=== PATIENT | female | born 1955 | race Caucasian/White ===

== ENCOUNTER → 2017-05-06 | Outpatient (CLI) | payer OTHER | LOC: BMCIMAGING 14:30 | PROVIDERS: ATTEND Internal Medicine | DX: Z12.31 Encounter for screening mammogram for malignant neoplasm of breast (principal) | CPT/HCPCS: G0202 ==

== ENCOUNTER → 2018-02-01 | Outpatient (CLI) | payer OTHER | LOC: FIMAGING 10:00 | PROVIDERS: ATTEND Orthopaedic Surgery | DX: Z01.818 Encounter for other preprocedural examination (principal); M17.11 Unilateral primary osteoarthritis, right knee ==

== ENCOUNTER 2018-02-13 08:52 | Observation (INO) | payer OTHER ==
--- NOTE | 2018-02-13 06:30 | PDHPUP ---
History & Physical Update H&P update statement: This history and physical update is based on an assessment of the patient which was completed after admission or registration (within 24 hours), but prior to the surgery/procedure. H&P update: no change in patient's condition since H&P completed
--- NOTE | 2018-02-13 06:30 | PDIAF ---
- Diagnosis Diagnosis: right knee djd Code Status: Full Code - Medication Management Discharge Medications: Medications to Continue on Transfer Cholecalciferol Vit D3 [Vitamin D3 (*)] 1,000 units PO DAILY 01/27/18 [Last Taken Unknown] Gabapentin [Neurontin 100 MG (*)] 200 mg PO BID@09,14 01/27/18 [Last Taken Unknown] Gabapentin [Neurontin 300 MG (*)] 300 mg PO HS 01/27/18 [Last Taken Unknown] Lisinopril [Zestril 20 mg (*)] 20 mg PO DAILY 01/27/18 [Last Taken Unknown] Multivitamins [Multivitamin (*)] 1 each PO DAILY 01/27/18 [Last Taken Unknown] QUEtiapine FUMARATE [Seroquel 50 mg (*)] 75 mg PO HS 01/27/18 [Last Taken Unknown] Lamictal 01/31/18 [Last Taken Unknown] Discharge Medications: Refer to the Discharge Home Medication list for PRN reason. - Orders Services needed: Physical Therapy Diet Recommendation: no restrictions on diet Diet Texture: Regular Texture Diet Activity/Weight Bearing Restrictions: wbat. rom as fifi. keep dressing in place unless it becomes saturated. may shower with bandage. seek attn for increasing pain, chest pain, sob, leg pain, drainage or other focal complaint. f/u at two weeks Additional Instructions: TOTAL JOINT ARTHROPLASTY DISCHARGE INSTRUCTIONS 1. Your surgeon follows the [facility] protocol for reducing your risk of DVT (blood clots) following surgery. Medication will be ordered to prevent blood clots. A sudden increase in calf pain and/or swelling could indicate a blood clot in your leg. If this occurs, please call your surgeon or his/her administration assistant. An ultrasound of the leg may be necessary to diagnose a blood clot. If you have conditions that make you a higher risk for blood clots, your surgeon may use more aggressive ways to prevent them. Notify your surgeon if you think you are a high risk for blood clots. 2. Wear your white surgical stockings (NILDA hose) for 2 weeks. This decreases your swelling and may help prevent blood clots. It is ok to remove NILDA hose at night time to give your legs a break. 3. Swelling and bruising in the surgical leg is common. If you feel that it is excessive, please notify your surgeon. 4. Elevate your surgical leg with the ankle above the hip several times every day. Please keep the leg straight when you elevate by putting pillows under your foot. Do not put pillows under your knee. This will make being able to fully straighten more difficult. This is uncomfortable, but try to do it as much as possible. 5. For total knee replacements use compressive wrap on your knee for 3-5 days after surgery, then you can discontinue it. 6. Use a walker or crutches for 1-2 weeks. Progress your weight-bearing as tolerated. You may start to use a cane when you feel stable and safe. 7. You will receive physical therapy instructions in the hospital. Continue those exercises at home. There are additional exercises in the total joint booklet you were given before surgery. Outpatient physical therapy will begin 7- 10 days after surgery. Please schedule this in advance. 8. Use ice on your knee at least 3-5 times every day for 30 minutes. This helps reduce pain and swelling. Also use it at night before falling asleep. 9. Leave your surgical dressing in place for 2 weeks. Your dressing is water resistant, but not waterproof. Cover it with Saran Wrap or Eldhk-c-Hcuy before showering. You may shower as soon as you feel safe entering a shower. If you notice bleeding from your incision 2 or 3 days after surgery, please notify your surgeon. 10. Due to narcotics, decreased activity and altered diet, most patients experience constipation after surgery. Use gdwm-fht-[id number] stool softeners while you are on narcotics. 11. You may drive a car when you are comfortable bearing weight, have good muscular control of your leg and are off narcotics. This usually occurs 2-4 weeks after surgery, depending on which leg was operated on. 12. If there are questions not addressed here, please refer the [facility] book given for more information. If you still have questions, please contact your surgeon s office. 13. If you have a life-threatening emergency, please call 911 and go to the emergency room immediately. For non-life threatening emergencies, please call your physicians office for advice before going to the emergency room. - Follow Up Care Current Providers and Referrals: Laurel Simmons MD [Primary Care Provider] - Denilson Wise MD [Medical Doctor] -
[~2018-02-13 08:52] MED LIST: CALCIUM CHLORIDE 1 GM/10 ML INJ ONE; ROPIVACAINE 0.2% 80 MG, EPINEPHrine 0.2 MG, KETOROLAC TROMETHAMINE 30 MG in SYRINGE 0 ML IU ONE; THROMBIN (BOVINE) 5,000 UNIT VIAL TP ONE; TRANEXAMIC ACID 1,000 MG in NS 100 ML IV ONE; ceFAZolin 1 GM/5 ML SYR ONE
[2018-02-13] MEDS ORDERED: FAMOTIDINE 20 MG TAB PO ONE (09:08)
[2018-02-13] MEDS ORDERED: ACETAMINOPHEN 325 MG TAB PO ONE (09:08)
[2018-02-13] MEDS ORDERED: ceFAZolin 2 GM/DEXTROSE 100 ML IV ONE (09:08)
[2018-02-13] MEDS ORDERED: LIDOCAINE 1% 2 ML INJ ID PRN (09:09)
[2018-02-13] MEDS ORDERED: LR 1,000 ML IV ONE (09:09)
[2018-02-13] MEDS ORDERED: DIAZEPAM 5 MG/ML 1 ML SYR IVP ONE (10:46)
--- NOTE | 2018-02-13 10:48 | PDANEPAE ---
ANE Past Medical History - Cardiovascular History Hx Hypertension: Yes Hx Arrhythmias: No Hx Chest Pain: No Hx Coronary Artery / Peripheral Vascular Disease: No Hx CHF / Valvular Disease: No Hx Palpitations: No - Pulmonary History Hx COPD: No Hx Asthma/Reactive Airway Disease: No Hx Recent Upper Respiratory Infection: No Hx Oxygen in Use at Home: No Hx Sleep Apnea: No Sleep Apnea Screening Result - Last Documented: Negative - Neurologic History Hx Cerebrovascular Accident: No Hx Seizures: No Hx Dementia: No - Endocrine History Hx Diabetes: No Obesity: no - Renal History Hx Renal Disorders: No - Liver History Hx Hepatic Disorders: No - Neurological & Psychiatric Hx Hx Neurological and Psychiatric Disorders: Yes Neurological / Psychiatric History Comment: situational anxiety - Cancer History Hx Cancer: No - Congenital Disorder History Hx Congenital Disorders: No - GI History GERD: no Hx Gastrointestinal Disorders: No - Other Health History Other Health History: none - Chronic Pain History Chronic Pain: Yes (bilat knee pain) - Surgical History Prior Surgeries: none ANE Review of Systems Review of Systems: - Exercise capacity METS (RN): 4 METS ANE Patient History - Allergies Allergies/Adverse Reactions: bacitracin Allergy (Verified 01/27/18 09:58) Rash Latex, Natural Rubber Allergy (Verified 02/13/18 09:31) midazolam [From Versed] Allergy (Verified 01/31/18 16:25) Other-Enter Comments morphine Allergy (Verified 01/27/18 09:58) HEADACHE - Home Medications Home Medications: Cholecalciferol Vit D3 [Vitamin D3 (*)] 1,000 units PO DAILY 01/27/18 [Last Taken 02/06/18] Gabapentin [Neurontin 100 MG (*)] 200 mg PO BID@09,14 01/27/18 [Last Taken 02/12] Gabapentin [Neurontin 300 MG (*)] 300 mg PO HS 01/27/18 [Last Taken 02/12/18] Lisinopril [Zestril 20 mg (*)] 20 mg PO DAILY 01/27/18 [Last Taken 02/12/18] Multivitamins [Multivitamin (*)] 1 each PO DAILY 01/27/18 [Last Taken 02/06/18] QUEtiapine FUMARATE [Seroquel 50 mg (*)] 75 mg PO HS 01/27/18 [Last Taken ] lamoTRIgine [LamICTAL 100 MG (*)] 200 mg PO BID 01/31/18 [Last Taken 02/12/18] clonazePAM [Klonopin (*)] 0.5 mg PO DAILY PRN 02/13/18 [Last Taken Unknown] - NPO status NPO Status: no food or drink >8 hours NPO Since - Liquids (Date): 02/13/18 NPO Since - Liquids (Time): 00:00 NPO Since - Solids (Date): 02/12/18 NPO Since - Solids (Time): 18:00 - Anes Hx Anes Hx: no prior problems - Smoking Hx Smoking Status: Never smoked - Family Anes Hx Family Hx Anesthesia Complications: none ANE Labs/Vital Signs - Vital Signs Blood Pressure: 130/77 Heart Rate: 80 Respiratory Rate: 14 O2 Sat (%): 99 Height: 157.48 cm Weight: 46.266 kg ANE Physical Exam - Airway Neck exam: FROM Mallampati Score: Class 2 Mouth exam: normal dental/mouth exam - Pulmonary Pulmonary: no respiratory distress, no rales or rhonchi, clear to auscultation - Cardiovascular Cardiovascular: regular rate and rhythym, no murmur, rub, or gallop - ASA Status ASA Status: II ANE Anesthesia Plan Anesthesia Plan: spinal Regional Anesthesia: adductor canal FNB
[2018-02-13] MEDS ORDERED: DEXAMETHASONE 4 MG/ML VIAL ONE ×2 (11:07)
[2018-02-13] MEDS ORDERED: PROPOFOL 200 MG/20 ML VIAL ONE ×2 (11:07→11:42)
[2018-02-13] MEDS ORDERED: LIDOCAINE 2% 5 ML SDV ONE (11:08)
[2018-02-13] MEDS ORDERED: DIAZEPAM 5 MG/ML 1 ML SYR ONE (11:09)
[2018-02-13] MEDS ORDERED: NALOXONE HCL 0.4 MG/ML INJ IVP PRN (12:26)
[2018-02-13] MEDS ORDERED: ACETAMINOPHEN 500 MG TAB PO PRN (12:26)
[2018-02-13] MEDS ORDERED: LR 500 ML IV PRN (12:26)
[2018-02-13] MEDS ORDERED: ONDANSETRON 4 MG/2 ML VIAL IVP PRN ×2 (12:26→12:35)
[2018-02-13] MEDS ORDERED: fentaNYL 100 MCG/2 ML INJ IVP PRN (12:26)
[2018-02-13] MEDS ORDERED: oxyCODONE IR 5 MG TAB PO PRN (12:26)
[2018-02-13] MEDS ORDERED: PROMETHAZINE HCL 25 MG/ML INJ IVP PRN ×2 (12:26→12:35)
[2018-02-13] MEDS ORDERED: DIPHENOXYLATE/ATROPINE LOMOTIL 1 TAB PO PRN (12:35)
[2018-02-13] MEDS ORDERED: BISACODYL 10 MG SUPP PR PRN (12:35)
[2018-02-13] MEDS ORDERED: METOCLOPRAMIDE 10 MG/2 ML VIAL IVP PRN (12:35)
[2018-02-13] MEDS ORDERED: traMADol 50 MG TAB PO PRN (12:35)
[2018-02-13] MEDS ORDERED: MAGNESIUM HYDROXIDE 30 ML UDCUP PO PRN (12:35)
[2018-02-13] MEDS ORDERED: PROMETHAZINE HCL 25 MG SUPPR PR PRN (12:35)
[2018-02-13] MEDS ORDERED: POLYETHYLENE GLYCOL 3350 17 GM PKT PO PRN (12:35)
[2018-02-13] MEDS ORDERED: ONDANSETRON DISINTEGRATING 4 MG TAB PO PRN (12:35)
[2018-02-13] MEDS ORDERED: diphenhydrAMINE 25 MG CAP PO PRN (12:35)
[2018-02-13] MEDS ORDERED: TEMAZEPAM 15 MG CAP PO PRN (12:35)
[2018-02-13] MEDS ORDERED: CYCLOBENZAPRINE 10 MG TAB PO PRN (12:35)
[2018-02-13] MEDS ORDERED: LACTULOSE 20 GM/30 ML UDCUP PO PRN (12:35)
--- NOTE | 2018-02-13 12:35 | POSTOPPROG ---
Post Op Note Date of Operation: 02/13/18 Surgeon: Denilson Wise Mushroom Picker: [email or web address] Anesthesiologist: jayy Anesthesia: IV Sedation, Spinal Pre-op Diagnosis: right knee djd Post-op Diagnosis: same Indication: same Procedure: right tka Inf/Abcess present in the surg proc area at time of surgery?: No Depth: Deep Incisional (Fascial) EBL: 100-500
[2018-02-13] MEDS ORDERED: clonazePAM 0.5 MG TAB PO PRN (12:38)
[2018-02-13] MEDS ORDERED: TRANEXAMIC ACID 650 MG TAB PO SCH (12:45)
--- NOTE | 2018-02-13 12:50 | POSTANESTH ---
Post Anesthetic Evaluation Cardiovascular Status: Normal, Stable, Similar to Pre-Op Cond Respiratory Status: Normal, Stable, Similar to Pre-op Cond. Level of Consciousness/Mental Status: Can Participate in Eval, Alert and Oriented Pain Control: Adequate, Prn Tx Ordered Nausea/Vomiting Control: Adequate, Prn Tx Ordered Complications Possibly Related to Anesthesia: None Noted (Rt adductor canal nerve block performed in PACU.)
[2018-02-13] MEDS ORDERED: LR 1,000 ML IV SCH (13:00)
[2018-02-13] MEDS ORDERED: GABAPENTIN 100 MG CAP PO SCH (14:00)
[2018-02-13] MEDS: TRANEXAMIC ACID 650 MG TAB PO SCH ×2 (16:09→23:34)
[2018-02-13] MEDS: GABAPENTIN 300 MG CAP PO SCH ×2 (16:27→20:40)
[2018-02-13] MEDS: ACETAMINOPHEN 325 MG TAB PO SCH ×2 (17:38→23:35)
[2018-02-13] MEDS: oxyCODONE IR 5 MG TAB PO PRN ×2 (17:39→19:08)
[2018-02-13] MEDS: ceFAZolin 2 GM/DEXTROSE 100 ML IV SCH (20:39)
[2018-02-13] MEDS: SENNOSIDES/DOCUSATE SODIUM TAB PO SCH (20:39)
[2018-02-13] MEDS: ASPIRIN 325 MG TAB PO SCH (20:39)
[2018-02-13] MEDS: lamoTRIgine 100 MG TAB PO SCH (20:40)
[2018-02-13] MEDS: FAMOTIDINE 20 MG TAB PO SCH (20:40)
[2018-02-13] MEDS ORDERED: QUEtiapine FUMARATE 50 MG TAB PO SCH (21:00)
[2018-02-14] MEDS: ceFAZolin 2 GM/DEXTROSE 100 ML IV SCH (04:18)
[2018-02-14] MEDS: ACETAMINOPHEN 325 MG TAB PO SCH ×2 (05:14→11:10)
--- NOTE | 2018-02-14 07:09 | PDIAF ---
- Diagnosis Diagnosis: right knee djd Code Status: Full Code - Medication Management Discharge Medications: Medications to Continue on Transfer Cholecalciferol Vit D3 [Vitamin D3 (*)] 1,000 units PO DAILY 01/27/18 [Last Taken 02/06/18] Gabapentin [Neurontin 300 MG (*)] 300 mg PO TID 01/27/18 [Last Taken 02/12/18] Lisinopril [Zestril 20 mg (*)] 20 mg PO DAILY 01/27/18 [Last Taken 02/12/18] Multivitamins [Multivitamin (*)] 1 each PO DAILY 01/27/18 [Last Taken 02/06/18] QUEtiapine FUMARATE [Seroquel 50 mg (*)] 75 mg PO HS 01/27/18 [Last Taken ] lamoTRIgine [LamICTAL 100 MG (*)] 200 mg PO BID 01/31/18 [Last Taken 02/12/18] clonazePAM [Klonopin (*)] 0.5 mg PO DAILY PRN 02/13/18 [Last Taken Unknown] Aspirin [Aspirin 325 mg (*)] 325 mg PO DAILY tab 02/14/18 [Last Taken Unknown] oxyCODONE IR [Oxycodone Ir (*)] 5 - 10 mg PO Q3HRS PRN #60 tab 02/14/18 [Last Taken Unknown] Discharge Medications: Refer to the Discharge Home Medication list for PRN reason. - Orders Services needed: Physical Therapy Diet Recommendation: no restrictions on diet Diet Texture: Regular Texture Diet Activity/Weight Bearing Restrictions: wbat. rom as fifi. keep dressing in place unless it becomes saturated. may shower with bandage. seek attn for increasing pain, chest pain, sob, leg pain, drainage or other focal complaint. f/u at two weeks Additional Instructions: TOTAL JOINT ARTHROPLASTY DISCHARGE INSTRUCTIONS 1. Your surgeon follows the [facility] protocol for reducing your risk of DVT (blood clots) following surgery. Medication will be ordered to prevent blood clots. A sudden increase in calf pain and/or swelling could indicate a blood clot in your leg. If this occurs, please call your surgeon or his/her optical assistant. An ultrasound of the leg may be necessary to diagnose a blood clot. If you have conditions that make you a higher risk for blood clots, your surgeon may use more aggressive ways to prevent them. Notify your surgeon if you think you are a high risk for blood clots. 2. Wear your white surgical stockings (NILDA hose) for 2 weeks. This decreases your swelling and may help prevent blood clots. It is ok to remove NILDA hose at night time to give your legs a break. 3. Swelling and bruising in the surgical leg is common. If you feel that it is excessive, please notify your surgeon. 4. Elevate your surgical leg with the ankle above the hip several times every day. Please keep the leg straight when you elevate by putting pillows under your foot. Do not put pillows under your knee. This will make being able to fully straighten more difficult. This is uncomfortable, but try to do it as much as possible. 5. For total knee replacements use compressive wrap on your knee for 3-5 days after surgery, then you can discontinue it. 6. Use a walker or crutches for 1-2 weeks. Progress your weight-bearing as tolerated. You may start to use a cane when you feel stable and safe. 7. You will receive physical therapy instructions in the hospital. Continue those exercises at home. There are additional exercises in the total joint booklet you were given before surgery. Outpatient physical therapy will begin 7- 10 days after surgery. Please schedule this in advance. 8. Use ice on your knee at least 3-5 times every day for 30 minutes. This helps reduce pain and swelling. Also use it at night before falling asleep. 9. Leave your surgical dressing in place for 2 weeks. Your dressing is water resistant, but not waterproof. Cover it with Saran Wrap or Fkucn-u-Dprc before showering. You may shower as soon as you feel safe entering a shower. If you notice bleeding from your incision 2 or 3 days after surgery, please notify your surgeon. 10. Due to narcotics, decreased activity and altered diet, most patients experience constipation after surgery. Use vupq-qga-dlhcpyj stool softeners while you are on narcotics. 11. You may drive a car when you are comfortable bearing weight, have good muscular control of your leg and are off narcotics. This usually occurs 2-4 weeks after surgery, depending on which leg was operated on. 12. If there are questions not addressed here, please refer the [facility] book given for more information. If you still have questions, please contact your surgeon s office. 13. If you have a life-threatening emergency, please call 911 and go to the emergency room immediately. For non-life threatening emergencies, please call your physicians office for advice before going to the emergency room. - Follow Up Care Current Providers and Referrals: Laurel Simmons MD [Primary Care Provider] - Denilson Wise MD [Medical Doctor] -
--- NOTE | 2018-02-14 07:11 | SOAPPROG ---
SOAP Progress Note Assessment/Plan: Assessment: s/p tka Plan: d/c home pain control dvt precautions reviewed f/u at two weeks 02/14/18 07:09 Subjective: mild pain no cp or sob fifi po Objective: Vital Signs Temp Pulse Resp BP Pulse Ox 36.4 C 59 L 16 137/73 H 100 02/14/18 04:00 02/14/18 04:00 02/14/18 04:00 02/14/18 04:00 02/14/18 04:00 Laboratory Results 02/14/18 04:17 02/13/18 02/14/18 02/15/18 05:59 05:59 05:59 Intake Total 3050 Output Total 650 Balance 2400 dressing intact intact pf,df,ehl toes warm and pink hira neg homans hira xrays stable alignment, no fx or lucency ICD10 Worksheet Patient Problems: Problems Problem Status Onset Arthritis of knee Acute - ICD10 Problem Qualifiers (1) Arthritis of knee
[2018-02-14] MEDS: ASPIRIN 325 MG TAB PO SCH (08:10)
[2018-02-14] MEDS: lamoTRIgine 100 MG TAB PO SCH (08:10)
[2018-02-14] MEDS: GABAPENTIN 300 MG CAP PO SCH (08:11)
[2018-02-14] MEDS: oxyCODONE IR 5 MG TAB PO PRN ×2 (08:13→11:13)
[2018-02-14] MEDS: FAMOTIDINE 20 MG TAB PO SCH (08:15)
[2018-02-14] MEDS: TRANEXAMIC ACID 650 MG TAB PO SCH (08:16)
[2018-02-14] MEDS: SENNOSIDES/DOCUSATE SODIUM TAB PO SCH (08:16)
[2018-02-14] MEDS ORDERED: LISINOPRIL 20 MG TAB PO SCH (09:00)
--- NOTE | 2018-02-14 12:15 | ASMTCMCOM ---
CM Note CM Note Notes: PT rec HHC, pt agreeable. Pt medically stable for d/c with choice [facility] PT and friend support. Orders to be obtained via [employer]. Date Signed: 02/14/2018 12:15 PM Electronically Signed By:JOHANNY Yusuf
--- NOTE | 2018-02-14 12:17 | ASMTLACE ---
REN Length of stay for Answers: 1 day current admission Acuity / Level of Answers: No Care: Did the patient have an inpatient admission? # of Emergency department Answers: 0 visits in the last 6 months Score: 1 Date Signed: 02/14/2018 12:17 PM Electronically Signed By:JOHANNY Yusuf
[2018-02-14 12:28] VITALS: BP 135/83
--- NOTE | 2018-02-14 15:16 | ASDISCHSUM ---
Discharge Information Plan Status:Home with Home Health Medically Cleared to Leave: Discharge Date:02/14/2018 01:52 PM CM D/C Disposition:Home Health Service ADT D/C Disposition:Home Health Service Projected Discharge Date:02/14/2018 11:00 AM Transportation at D/C: Discharge Delay Reason: Follow-Up Date:02/14/2018 11:00 AM Discharge Slot: Final Diagnosis: Placement Information Referral Type:*Home Health Care Services Referral ID:[id number] Provider Name:[facility] Address 1[address] [address] Address 2: City:[place] Selection Factors: State:[place] Patient Contact Information Contact Name:EUSEBIO Relationship:Friend Address: Work Phone: City: [facility] Phone: [facility] Code: Email: Financial Information Financial Class:HMO and PPO Plans Primary Plan Desc:HMO [place] [employer] Primary Plan Number:[id number] Secondary Plan Desc: Secondary Plan Number: Assessment Information [facility] CM Progress Note CM Note CM Note Notes: PT rec HHC, pt agreeable. Pt medically stable for d/c with choice [facility] PT and friend support. Orders to be obtained via [employer]. Date Signed: 02/14/2018 12:15 PM Electronically Signed By:JOHANNY Yusuf LISAE REN Length of stay for Answers: 1 day current admission Acuity / Level of Answers: No Care: Did the patient have an inpatient admission? # of Emergency department Answers: 0 visits in the last 6 months Score: 1 Date Signed: 02/14/2018 12:17 PM Electronically Signed By:JOHANNY Yusuf Intervention Information
--- NOTE | 2018-02-15 07:54 | GOP ---
[f rep st] OPERATIVE REPORT DATE OF OPERATION: 02/13/2018 SURGEON: Denilson Wise MD OPERATIONS SUPPORT SPECIALIST: Davide Wright, ACCOUNTS RECEIVABLE EXECUTIVE, FAMILY AND CONSUMER SCIENCES TEACHER, assistant professor surgical technology was medical necessity for the entirety of liseth valencia case preoperative. PREOPERATIVE DIAGNOSIS: Right knee degenerative joint disease. POSTOPERATIVE DIAGNOSIS: Right knee degenerative joint disease. PROCEDURE PERFORMED: Right total knee arthroplasty, MAKOplasty. FINDINGS: SPECIMENS: To pathology, none. ESTIMATED BLOOD LOSS: 100 cc. DESCRIPTION OF PROCEDURE: The patient was identified in the preanesthesia area. The right knee diane rly demarcated as operative site with indelible marker. In the OR, a spinal anesthetic was placed fo llowed by sedation. Attention was turned to the right knee which was sterilely prepped and draped in usual fashion. Appropriate time-out procedure was carried out. The limb was then sterilely prepped and draped in usual fashion. Exsanguinated with an Esmarch bandage and the tourniquet inflated to 2 75 mmHg. Standard anterior midline incision was made. Thick subcutaneous flaps were elevated follow ed by medial parapatellar arthrotomy. There were gross tricompartmental changes through the knee. Liseth annie decision was made to proceed with total knee replacement. Subperiosteal elevation was carried out to the mid coronal plane. Retractors were then placed. Two pins were then placed through the media l distal femur and the femoral reference array affixed. Separate percutaneous incision was made over the mid tibia and the tibial reference array affixed. Both the tibial and femoral check points were then placed. The bony landmarks were then entered into the computer in standard fashion. The laura nal osteophytes were withdrawn. The knee was balanced through the flexion-extension arc with soft ti ssue releases, and manipulation of the component position with the software using the MAKOplasty robo t. Resections were made for a size 3 femur, size 2 tibia, a trial reduction was carried out where a 2 x 9 mm polyethylene insert. This allowed full extension and flexion without instability throughout the flexion-extension arc to varus and valgus stress. The trial components were withdrawn. The size 2 tibia was then impacted in a press-fit technique. The 3 femur was impacted in a press-fit techniq ue. A 2 x 9 mm polyethylene spacer was placed confirmed to be fully seated. The knee was then broug ht to extension, the patella was then everted, cut in a freehand cutting technique. Three drill hole s were made for a size 32 mm patella. A press-fit 32 mm patella was then placed confirmed to be full y seated. The knee was taken through full range of motion, was stable and appropriate as above. The patella tracked centrally. The wound was copiously irrigated with pulsatile lavage solution. The k nee was instilled with a joint cocktail of ropivacaine, morphine, Toradol, and epinephrine. The medi al parapatellar arthrotomy closed using #1 Ethibond suture. The subcutaneous tissue closed using 2-0 Monocryl and the skin was stapled. A sterile dressing was applied. The patient was awakened, extub ated and taken recovery room in stable condition. OPERATIVE INDICATIONS: The patient is a 62-year-old woman who has end-stage arthritis to her right k nee. Clinical and radiographic features are consistent with this. She has failed all attempts at co nservative management. I have, therefore, recommended operative intervention with total knee replace ment. She understood the risks, benefits, alternatives, and wished to proceed. Written consent was signed and placed in the patient's chart. TOTAL TOURNIQUET TIME: 50 minutes. COMPLICATIONS: None. IMPLANTS: A [place] triathlon posterior stabilized femoral component size 3, size 2 tibia, 2 x 9 mm polyethylene spacer and 32 mm metal-backed poly patella. DISPOSITION: To the recovery room, then the floor. She is weightbearing range of motion as asher d. /[id number]/MODL
--- NOTE | 2018-02-15 08:09 | GDS ---
[f rep st] DISCHARGE SUMMARY ADMISSION DIAGNOSIS: Right knee degenerative joint disease. DISCHARGE DIAGNOSIS: Right knee degenerative joint disease. PROCEDURE: Right total knee arthroplasty. HISTORY OF PRESENT ILLNESS: The patient is a 62-year-old woman with end-stage arthritis to her right knee. She presents for elective total knee replacement. HOSPITAL COURSE: The patient had an uneventful postoperative course. At the time of discharge, she is tolerating an oral diet. Pain was well-controlled on oral medicine. She is voiding without diffi culty. Dressing is clean, dry, and intact. She has negative calf swelling, negative Ana's bilater ally and has been cleared by Physical Therapy. DISCHARGE ACTIVITY: Weightbearing as tolerated. Range of motion as tolerated. Keep the dressing in place. May shower with the dressing. DISCHARGE INSTRUCTIONS: Followup in 2 weeks. Seek attention for increasing redness, swelling, drain age, discharge, or other focal complaints. DISCHARGE MEDICATIONS: Oxycodone 5 mg 1-2 every 6 hours p.r.n. pain, aspirin 325 mg p.o. daily. /[id number]/MODL
== END 2018-02-14 13:52 | disposition home health service (06) ==
LOC: F3N 08:52 → INTOOBSV 08:52 → F3N 13:55
PROVIDERS: ADMIT Orthopaedic Surgery; ATTEND Orthopaedic Surgery
PROC: 0SRC0JZ Replacement of Right Knee Joint with Synthetic Substitute, Open Approach (ICD-10-PCS; principal; 2018-02-13 10:30)
DX: M17.11 Unilateral primary osteoarthritis, right knee (principal); I10 Essential (primary) hypertension
CPT/HCPCS: 27447; 73560; 97110; 97116; 97161; 97165; 97535; G0378; J0171; J0690; J1100; J1885; J2704; J2795; J3360

== ENCOUNTER → 2018-03-27 | Outpatient (CLI) | payer OTHER | LOC: BMCIMAGING 09:58 | PROVIDERS: ATTEND Physician Assistant | DX: Z47.1 Aftercare following joint replacement surgery (principal); M79.89 Other specified soft tissue disorders; Z96.651 Presence of right artificial knee joint ==

== ENCOUNTER → 2018-05-09 | Outpatient (CLI) | payer OTHER | LOC: BMCIMAGING 10:47 | PROVIDERS: ATTEND Orthopaedic Surgery | DX: Z47.1 Aftercare following joint replacement surgery (principal); Z96.651 Presence of right artificial knee joint ==

== ENCOUNTER → 2018-06-28 | Outpatient (CLI) | payer OTHER | LOC: BMCIMAGING 14:10 | PROVIDERS: ATTEND Orthopaedic Surgery | DX: M16.11 Unilateral primary osteoarthritis, right hip (principal) ==

== ENCOUNTER → 2018-07-07 | Outpatient (CLI) | payer OTHER | LOC: BMCIMAGING 14:13 | PROVIDERS: ATTEND Internal Medicine | DX: M81.0 Age-related osteoporosis without current pathological fracture (principal); Z12.31 Encounter for screening mammogram for malignant neoplasm of breast ==

== ENCOUNTER → 2018-08-16 | Outpatient (CLI) | payer OTHER | END | disposition home or self-care (01) | LOC: BMCIMAGING 10:27 | PROVIDERS: ATTEND Orthopaedic Surgery | DX: Z09 Encounter for follow-up examination after completed treatment for conditions other than malignant neoplasm (principal); Z96.651 Presence of right artificial knee joint ==

== ENCOUNTER → 2019-01-03 | Outpatient (CLI) | payer OTHER, MEDICARE | LOC: BMCIMAGING 14:19 | PROVIDERS: ATTEND Orthopaedic Surgery | DX: Z09 Encounter for follow-up examination after completed treatment for conditions other than malignant neoplasm (principal); Z96.651 Presence of right artificial knee joint ==